=== PATIENT | male | born 1930 | race Caucasian/White ===

== ENCOUNTER → 2017-06-25 | Outpatient (CLI) | payer MEDICARE ==
[~2017-06-25] MED LIST: BESI5DRO RIGHTEYE; BROM5DRO3 RIGHTEYE; DIFL5DRO RIGHTEYE; LOSA50TA6 PO; LOVA40TA2 PO; OMEG-76 PO; TAMS-11 PO; UBID100C41 PO; [UNRECOGNIZED DRUG - OTHER] PO
[2017-06-25 12:52] LABS: MICROSCOPIC INDICATED
[2017-06-25 12:53] LABS: BASOPHILS # (AUTO) 0.01 x10^3/uL (0-0.1); BASOPHILS % (AUTO) 0 % (0-1); EOSINOPHILS # (AUTO) 0.09 x10^3/uL (0-0.4); EOSINOPHILS % (AUTO) 1 % (1-7); LYMPHOCYTES # (AUTO) 1.26 x10^3/uL (1-3.4); LYMPHOCYTES % (AUTO) 19 % (22-44); MD NO; MEAN CORPUSCULAR HEMOGLOBIN 34.7 pg (27.5-34.5); MEAN CORPUSCULAR VOLUME 101.8 fL (81-97); MEAN PLATELET VOLUME 8.6 fL (7.4-10.4); MONOCYTES # (AUTO) 0.87 x10^3/uL (0.2-0.8); MONOCYTES % (AUTO) 13 % (2-9); NEUTROPHILS # (AUTO) 4.43 x10^3/uL (1.8-6.8); NEUTROPHILS % (AUTO) 67 % (42-75); PLATELET COUNT 204 x10^3/uL (130-400); RED BLOOD COUNT 4.25 x10^6/uL (4.38-5.82); RED CELL DISTRIBUTION WIDTH 13.4 % (9.4-14.8)
[2017-06-25 13:00] LABS: INTERNATIONAL NORMALIZED RATIO 0.95 (0.93-1.1); PROTHROMBIN TIME 9.8 Seconds (9.6-11.5)
[2017-06-25 13:04] LABS: ALBUMIN 3.6 g/dL (3.4-5.0); ANION GAP 4 mmol/L (5-15); CALCIUM 9.2 mg/dL (8.5-10.1); CHLORIDE 108 mmol/L (98-107)
[2017-06-25 13:08] LABS: ALANINE AMINOTRANSFERASE 21 U/L (12-78); ALKALINE PHOSPHATASE 71 U/L (45-117); BILIRUBIN,TOTAL 0.9 mg/dL (0.2-1.0); CREATININE 1.32 mg/dL (0.7-1.3); TOTAL PROTEIN 7.1 g/dL (6.4-8.2)
== END | disposition home or self-care (01) ==
LOC: STAR 11:17
PROVIDERS: ATTEND Urology
DX: Z01.818 Encounter for other preprocedural examination (principal); R00.1 Bradycardia, unspecified; I44.4 Left anterior fascicular block
CPT/HCPCS: 36415; 80053; 81001; 85025; 85610; 85730; 87086; 93005

== ENCOUNTER 2017-07-13 12:19 | Inpatient (IN) | payer MEDICARE ==
[2017-06-25 11:40] VITALS: BP 146/81
[~2017-07-13] VITALS: Ht 180.3 cm; Wt 82.0 kg
[2017-07-13] MEDS ORDERED: LACTATED RINGERS 1,000 ML IV SCH (13:24)
[2017-07-13] MEDS ORDERED: ROCURONIUM 10MG/ML,5ML ONE (15:57)
[2017-07-13] MEDS ORDERED: CEFAZOLIN 1,000 MG ONE (15:57)
[2017-07-13] MEDS ORDERED: GLYCOPYRROLATE 0.2MG/1ML, 5ML ONE (15:57)
[2017-07-13] MEDS ORDERED: FENTANYL PF 100 MCG/2ML ONE (15:57)
[2017-07-13] MEDS ORDERED: PROPOFOL 10 MG/ML, 20ML ONE (15:57)
[2017-07-13] MEDS ORDERED: NEOSTIGMINE 1 MG/ML, 10ML ONE (15:57)
[2017-07-13] MEDS ORDERED: HYDROmorphone 1 MG/ML, 1ML IV PRN (16:00)
[2017-07-13] MEDS ORDERED: ACETAMINOPHEN 325 MG TABLET PO PRN ×2 (16:00→19:30)
[2017-07-13] MEDS ORDERED: PROMETHAZINE 12.5 MG SUPP PR PRN (16:00)
[2017-07-13] MEDS ORDERED: FENTANYL PF 100 MCG/2ML IV PRN (16:00)
[2017-07-13] MEDS ORDERED: MEPERIDINE/PF 25MG/0.5ML IVPush PRN (16:00)
[2017-07-13] MEDS ORDERED: PROMETHAZINE 25 MG/ML, 1ML IV PRN (16:00)
[2017-07-13] MEDS ORDERED: OXYcodone 5 MG/5 ML ORAL.SOL UDC PO PRN (16:00)
[2017-07-13] MEDS ORDERED: ONDANSETRON 2MG/ML, 2ML IVPush PRN (16:00)
[2017-07-13] MEDS ORDERED: LABETALOL 5MG/ML, 20ML IV PRN (16:00)
[2017-07-13] MEDS ORDERED: hydrALAzine 20 MG/ML, 1ML IV PRN (16:00)
[2017-07-13] MEDS ORDERED: morphine SULFATE 10 MG/ML, 1ML IV PRN ×2 (16:00→19:00)
[2017-07-13] MEDS ORDERED: OPIUM/BELLADONNA SUPP.RECT 16.2-60 MG PR PRN (17:30)
[2017-07-13] MEDS ORDERED: ONDANSETRON 2MG/ML, 2ML IV PRN (19:00)
[2017-07-13 19:30] VITALS: BP 116/53
[2017-07-13] MEDS ORDERED: HYDROcodone/APAP 5/325 TABLET PO PRN (19:30)
[2017-07-13] MEDS ORDERED: OXYcodone/APAP 5/325MG TABLET PO PRN (19:30)
[2017-07-13] MEDS: LOVASTATIN 40 MG TABLET PO SCH (22:02)
[2017-07-13] MEDS: D5%-LACTATED RINGERS 1,000 ML IV SCH (22:06)
[2017-07-14 02:09] VITALS: BP 103/51
[2017-07-14] MEDS: D5%-LACTATED RINGERS 1,000 ML IV SCH ×2 (05:19→14:00)
[2017-07-14 05:57] LABS: ANION GAP 5 mmol/L (5-15); CHLORIDE 102 mmol/L (98-107); CREATININE 1.01 mg/dL (0.7-1.3)
[2017-07-14 07:30] VITALS: BP 98/61
[2017-07-14 08:50] VITALS: BP 109/52
[2017-07-14] MEDS: LOSARTAN 50MG TABLET PO SCH (08:53)
[2017-07-14] MEDS ORDERED: METOCLOPRAMIDE 5 MG/ML, 2ML IVPush ONE (13:30)
[2017-07-14 13:45] VITALS: BP 111/59
[2017-07-14 20:20] VITALS: BP 115/66
[2017-07-14] MEDS: LOVASTATIN 40 MG TABLET PO SCH (20:40)
[2017-07-15] MEDS: D5%-LACTATED RINGERS 1,000 ML IV SCH ×2 (01:49→09:59)
[2017-07-15 02:40] VITALS: BP 127/75
[2017-07-15 08:27] VITALS: BP 138/71
[2017-07-15] MEDS: LOSARTAN 50MG TABLET PO SCH (09:59)
[2017-07-15 13:50] VITALS: BP 139/74
[2017-07-15 16:21] VITALS: BP 149/88
[2017-07-15] MEDS ORDERED: PNEUMOCOCCAL 23 VACCINE IM-VACC ONE (16:30)
== END 2017-07-15 17:25 | disposition home or self-care (01) | DRG 713 ==
LOC: OUT 12:19 → 4NOR 18:56 → OUT 19:07 → 4NOR 19:08 → DCLOUNGE 07-15 17:02
PROVIDERS: ADMIT Urology; ATTEND Urology
PROC: 0VB08ZZ Excision of Prostate, Via Natural or Artificial Opening Endoscopic (ICD-10-PCS; principal; 2017-07-13 14:00)
DX: N40.1 Benign prostatic hyperplasia with lower urinary tract symptoms (principal); N13.8 Other obstructive and reflux uropathy; N32.0 Bladder-neck obstruction
CPT/HCPCS: 36415; 80048; 85014; 85018; 88305; 90732; J0690; J2704; J2710; J3010; J3301; J3490; J0360; J2270; J2765; J7120; J7121